=== PATIENT | male | born 1985 | race Caucasian/White ===

== ENCOUNTER 2019-01-07 17:34 | Inpatient (IN) ==
[2019-01-07 18:21] LABS: Basophils # 0.1 K/mcL (0.0-0.2); Basophils % 0.6 %; Eosinophils # 0.3 K/mcL (0.0-0.6); Eosinophils % 2.6 %; Hematocrit 47.2 % (37.5-50.1); Hemoglobin 15.4 g/dL (12.9-16.9); Immature Granulocytes % 0.5 % (0-4); Lymphocytes # 2.4 K/mcL (0.6-4.6); Lymphocytes % 21.4 %; Mean Corpuscular HGB Conc 32.6 g/dL (31.6-35.5); Mean Corpuscular Hemoglobin 27.9 pg (28.0-33.3); Mean Corpuscular Volume 85.5 fL (83.0-100.0); Mean Platelet Volume 9.1 fL (9.4-12.4); Monocytes # 0.9 K/mcL (0.0-1.3); Monocytes % 8.4 %; Neutrophils # 7.3 K/mcL (1.6-8.9); Platelet Count 483 K/mcL (140-400); Red Blood Count 5.52 M/mcL (4.19-5.50); Red Cell Distribution Width 12.9 % (11.5-14.5); Segmented Neutrophils % 66.5 %
[2019-01-07 18:26] LABS: Amphetamine Screen,Urine Negative ng/mL (Cutoff=1000); Barbiturate Screen,Urine Negative ng/mL (Cutoff=200); Benzodiazepines Screen,Urine Negative ng/mL (Cutoff=200); Cannabinoid Screen,Urine Negative ng/mL (Cutoff = 50); Cocaine Screen,Urine Negative ng/mL (Cutoff= 300); Opiate Screen,Urine Negative ng/mL (Cutoff=300); Phencyclidine Screen,Urine Negative ng/mL (Cutoff=25)
[2019-01-07 18:36] LABS: Bilirubin,Urine Negative (Negative); Blood,Urine Negative (Negative); Clarity,Urine Clear (Clear); Color,Urine Yellow (Yellow); Glucose,Urine (UA) Normal (Normal); Ketones,Urine Negative (Negative); Leukocyte Esterase,Urine Negative (Negative); Nitrite,Urine Negative (Negative); PH,Urine 6.5 pH Units (5.0-8.0); Protein,Urine Negative (Neg-Trace); Specific Gravity,Urine 1.006 (1.010-1.025); Urobilinogen,Urine Normal (Normal)
[2019-01-07 18:37] LABS: Acetaminophen < 10 mcg/mL (10-20); BUN/Creatinine Ratio 16 (6-26); Blood Urea Nitrogen 15 mg/dL (6-20); Calcium 9.3 mg/dL (8.6-10.3); Carbon Dioxide 27 mEq/L (23-29); Chloride 102 mEq/L (98-107); Ethanol < 10 mg/dL (Less than 10); Glucose 106 mg/dL (70-105); Osmolality,Calculated 281 (280-300); Salicylate < 2.5 mg/dL (15.0-30.0); Sodium 135 mEq/L (136-145); eGFR For African Americans > 60 (> 60); eGFR For Non-African Americans > 60 (> 60)
[2019-01-07] MEDS ORDERED: traZODone 50 MG TABLET PO PRN (22:07)
[2019-01-07] MEDS ORDERED: MOM Conc 10 ML UD.LIQ PO PRN (22:07)
[2019-01-07] MEDS ORDERED: Mag Hydrox/Al Hydrox/Simeth 30 ML UDC PO PRN (22:07)
[2019-01-07] MEDS ORDERED: *HR* LORazepam 1 MG TABLET PO PRN (22:07)
[2019-01-07] MEDS ORDERED: Haloperidol Lactate 5 MG/ML VIAL IM PRN (22:07)
[2019-01-07] MEDS ORDERED: *HR* LORazepam 2 MG/ML VIAL IM PRN (22:07)
[2019-01-08] MEDS ORDERED: ALPRAZolam 1 MG TABLET PO PRN (01:49)
[2019-01-08] MEDS ORDERED: Nitroglycerin 0.4 MG TAB.SUBL SL PRN (01:49)
[2019-01-08] MEDS ORDERED: D5% in Water 1,000 ML IVC PRN (05:19)
[2019-01-08] MEDS ORDERED: Dextrose Gel 15 GM/37.5 ML TUBE PO PRN ×2 (05:19)
[2019-01-08] MEDS ORDERED: *HR* Dextrose 50 % in Water (Syg) 50 ML SYRINGE IVP PRN (05:19)
[2019-01-08] MEDS: Insulin LISPRO 300 UNITS/3 ML VIAL SQ SCH ×3 (08:49→16:44)
[2019-01-08] MEDS: Metoprolol XL (24 HR) Succ 25 MG TAB.ER.24H PO SCH (08:51)
[2019-01-08] MEDS: Gabapentin 300 MG CAPSULE PO PRN ×2 (08:56→22:24)
[2019-01-08] MEDS ORDERED: BuPROPion XL (24 HR) 150 MG TABLET PO SCH (09:00)
[2019-01-08] MEDS: LIRAGLUTIDE SQ SCH (09:22)
[2019-01-08] MEDS ORDERED: BuPROPion XL (24 HR) 150 MG TABLET PO ONE (10:30)
[2019-01-08] MEDS: Acetaminophen 325 MG TABLET PO PRN ×2 (10:32→21:16)
[2019-01-08] MEDS: Budesonide/Formoterol 160/4.5 1 PUFF INH IH SCH ×2 (10:51→21:14)
[2019-01-08] MEDS ORDERED: Insulin LISPRO 300 UNITS/3 ML VIAL SQ SCH (21:00)
[2019-01-08] MEDS: traZODone 50 MG TABLET PO SCH (21:15)
[2019-01-09] MEDS: BuPROPion XL (24 HR) 150 MG TABLET PO SCH (09:07)
[2019-01-09] MEDS: Metoprolol XL (24 HR) Succ 25 MG TAB.ER.24H PO SCH (09:07)
[2019-01-09] MEDS: Budesonide/Formoterol 160/4.5 1 PUFF INH IH SCH ×2 (09:08→21:51)
[2019-01-09] MEDS: LIRAGLUTIDE SQ SCH (09:09)
[2019-01-09] MEDS: Gabapentin 300 MG CAPSULE PO PRN ×3 (09:49→22:36)
[2019-01-09] MEDS: traZODone 50 MG TABLET PO SCH (20:53)
[2019-01-09] MEDS: Acetaminophen 325 MG TABLET PO PRN (22:36)
[2019-01-10] MEDS: LIRAGLUTIDE SQ SCH (08:50)
[2019-01-10] MEDS: Budesonide/Formoterol 160/4.5 1 PUFF INH IH SCH ×2 (08:52→21:37)
[2019-01-10] MEDS: Metoprolol XL (24 HR) Succ 25 MG TAB.ER.24H PO SCH (08:53)
[2019-01-10] MEDS: BuPROPion XL (24 HR) 150 MG TABLET PO SCH (08:53)
[2019-01-10] MEDS: Gabapentin 300 MG CAPSULE PO PRN (14:45)
[2019-01-10] MEDS: hydrOXYzine pamoate 25 MG CAPSULE PO PRN ×2 (15:33→21:36)
[2019-01-10] MEDS: traZODone 50 MG TABLET PO SCH (21:36)
[2019-01-11] MEDS ORDERED: Insulin LISPRO 300 UNITS/3 ML VIAL SQ ONE (08:49)
[2019-01-11] MEDS: Metoprolol XL (24 HR) Succ 25 MG TAB.ER.24H PO SCH (09:10)
[2019-01-11] MEDS: Gabapentin 300 MG CAPSULE PO PRN (09:11)
[2019-01-11] MEDS: BuPROPion XL (24 HR) 150 MG TABLET PO SCH (09:12)
[2019-01-11] MEDS: LIRAGLUTIDE SQ SCH (09:12)
[2019-01-11] MEDS: Budesonide/Formoterol 160/4.5 1 PUFF INH IH SCH ×2 (09:16→22:01)
[2019-01-11] MEDS: Acetaminophen 325 MG TABLET PO PRN (14:06)
[2019-01-11] MEDS: hydrOXYzine pamoate 25 MG CAPSULE PO PRN (21:58)
[2019-01-11] MEDS: traZODone 50 MG TABLET PO SCH (21:58)
[2019-01-12] MEDS: Budesonide/Formoterol 160/4.5 1 PUFF INH IH SCH (08:22)
[2019-01-12] MEDS: BuPROPion XL (24 HR) 150 MG TABLET PO SCH (08:23)
[2019-01-12] MEDS: Metoprolol XL (24 HR) Succ 25 MG TAB.ER.24H PO SCH (08:24)
[2019-01-12] MEDS: LIRAGLUTIDE SQ SCH (08:24)
[2019-01-12 09:03] VITALS: BP 132/82
[2019-01-12] MEDS ORDERED: FLU Vac QV 19-20 (6Month+)/PF 0.5 ML SYRINGE IM ONE (10:29)
== END 2019-01-12 11:25 | disposition home or self-care (01) | DRG 751 ==
LOC: EMEROOARM 17:34 → SUATTDRO 20:29 → 1ANU 20:29
PROVIDERS: ADMIT Psychiatry & Neurology Psychiatry; ATTEND Psychiatry & Neurology Psychiatry